=== PATIENT | female | born 1975 | race Caucasian/White ===

== ENCOUNTER 2018-04-08 13:17 | Emergency (ER) | payer BC, OTHER ==
[~2018-04-08] VITALS: Ht 165.1 cm; Wt 76.4 kg
[2018-04-08 13:24] VITALS: BP 132/82
--- NOTE | 2018-04-08 13:44 | NUR ---
RT WRIST INJURY - FELL OFF STOOL AT WORK TODAY. WAS SEEN AT [facility]. CURRENTLY HOLDING ARM STEADY; PILLOW SPLINT PROVIDED. LIMITED ROM LT WRIST/HAND R/T PAIN. RADIAL PULSE STRONG & REG, SENSATION INTACT.
--- NOTE | 2018-04-08 13:51 | NUR ---
TO XR PER [facility]
--- NOTE | 2018-04-08 15:37 | NUR ---
SUGAR TONG SPLINT (FROM URGENT CARE) REAPPLIED. SENSATION INTACT. SPLINT AND SLING APPLICATION DISCUSSED W/ PT & SPOUSE; UNDERSTANDING VERBALIZED.
== END 2018-04-08 15:41 | disposition home or self-care (01) ==
LOC: ED 15:30
DX: S52.571A Other intraarticular fracture of lower end of right radius, initial encounter for closed fracture (principal); W17.89XA Other fall from one level to another, initial encounter; Y93.89 Activity, other specified; Y92.89 Other specified places as the place of occurrence of the external cause; Y99.8 Other external cause status
CPT/HCPCS: 99283

== ENCOUNTER → 2018-06-16 | Outpatient (CLI) | payer OTHER | END | disposition home or self-care (01) | LOC: CFH 13:56 | PROVIDERS: ATTEND Nurse Practitioner Family | DX: Z12.31 Encounter for screening mammogram for malignant neoplasm of breast (principal); Z88.8 Allergy status to other drugs, medicaments and biological substances | CPT/HCPCS: 77063; 77067 ==